=== PATIENT | female | born 1930 | race Caucasian/White ===

== ENCOUNTER 2016-09-28 19:13 | Emergency (ER) | payer MEDICARE, OTHER ==
[~2016-09-28 19:13] MED LIST: ALBUTEROL HFA6.7 GM IH; ASPIR 8181 MG PO; AUGMENTIN 875-1 EACH PO; BUSPIRONE HCL5 MG PO; CLARITIN10 MG PO; COLACE100 MG PO; COREG CR40 MG PO; CRANBERRY400 M1 PO; DULCOLAX10 MG RC; FLUTICASONE PRO16 GM NS; GLUCOPHAGE500 MG PO; INCRUSE ELLI62.5 MCG IH; LANTUS100 UNIT/1 SQ; ONDANSETRON4 MG/2 M2 IM; SALINE NOSE SPR45 ML NS; SENNA8.6 MG PO; SIMETHICONE80 MG PO; SYMBICORT 80-10.2 GM IH; TYLENOL EXTRA500 MG PO; VITAMIN D32000 UNI1 PO; ZANTAC150 MG PO; ZOCOR40 MG PO; ZOLOFT100 MG PO
== END 2016-09-28 21:42 | disposition home or self-care (01) ==
LOC: ER 19:13
DX: N39.0 Urinary tract infection, site not specified (principal); E87.1 Hypo-osmolality and hyponatremia; R53.1 Weakness; R05 Cough; I10 Essential (primary) hypertension; E11.9 Type 2 diabetes mellitus without complications; K21.9 Gastro-esophageal reflux disease without esophagitis; E78.5 Hyperlipidemia, unspecified; J44.9 Chronic obstructive pulmonary disease, unspecified; F17.210 Nicotine dependence, cigarettes, uncomplicated; Z79.4 Long term (current) use of insulin; Z95.5 Presence of coronary angioplasty implant and graft; Z90.49 Acquired absence of other specified parts of digestive tract; Z90.710 Acquired absence of both cervix and uterus; Z88.1 Allergy status to other antibiotic agents; Z88.2 Allergy status to sulfonamides; Z88.8 Allergy status to other drugs, medicaments and biological substances; Z86.73 Personal history of transient ischemic attack (TIA), and cerebral infarction without residual deficits
CPT/HCPCS: 36415; 96365; 96375; J0360